=== PATIENT | male | born 1945 ===

== ENCOUNTER 2017-09-24 19:17 | Emergency (ER) | payer MEDICARE, OTHER ==
[2017-09-24 19:21] VITALS: BP 143/90
--- NOTE | 2017-09-24 19:23 | ER Report ---
History and Physical Time Seen By MD: 19:22 HPI/ROS CHIEF COMPLAINT: dizziness HISTORY OF PRESENT ILLNESS: This is a 72 year old male. He was at home and started to feel very dizzy. Very diaphoretic and nauseated. Had the urge and had a large bowel movement. He was starting to feel somewhat improved when he came to the hospital. Delay in getting in to see the patient, and he had labs drawn and an IV started with a liter of fluid given. He feels better now. He was thinking that he may have been a little dehydrated. He did take a bike ride about 8-10 miles prior to this and was sitting down to watch a movie at home. He has no further dizziness now. Had no chest pain. and no heart palpitations. No shortness of breath. Has been in good health otherwise. No history of heart problems. REVIEW OF SYSTEMS: Constitutional: Some chills during the episode, but no fevers. Eyes: No vision changes. ENT: No sore throat. No congestion. Cardiovascular: As above. Respiratory: No cough. No shortness of breath. Gastrointestinal: No abdominal pain. Genitourinary: No dysuria. No hematuria. No frequency Musculoskeletal: No back pain. No extremity pain. Skin: No rashes. No bruising. Neurological: No numbness. No weakness. Allergies: Coded Allergies: No Known Drug Allergies (Unverified , 08/10/14) Home Meds Discontinued Reported Medications Aspirin (ASPIR-LOW) 81 Mg Tablet.dr, 81 MG PO PRN Y for PAIN/HEADACHE, TAB 08/10/14 Discontinued Scripts Hydrocodone Bit/Acetaminophen (HYDROCODON-ACETAMINOPHEN 5-325) 1 Each Tablet, 1- 2 EACH PO Q4-6H, #30 TAB Prov:ANJEL GARCIA MD 08/14/14 Ketorolac Tromethamine (KETOROLAC TROMETHAMINE) 10 Mg Tab, 10 MG PO Q6H, #20 TAB Prov:ANJEL GARCIA MD 08/14/14 Reviewed Nurses Notes: Yes Hx Smoking: Yes (SMOKED CIGARS 2 TO 3 YEARS) Smoking Status: Former Smoker Exposure to Second Hand Smoke?: No Hx Alcohol Use: Yes Constitutional Vital Sign - Last 24 Hours 09/24/17 19:21 Temp 98.2 Pulse 52 Resp 20 B/P (MAP) 143/90 Pulse Ox 96 Physical Exam General Appearance: The patient is alert. No acute distress. Eyes: Pupils are equal, round. No pallor, injection or icterus. ENT: Mucous membranes are moist. Normal oral mucosa. Posterior oropharynx is normal. Neck: Supple and non tender. Respiratory: Lungs are clear to auscultation. Cardiovascular: Regular rate and rhythm. No murmurs, gallops or rubs. Normal capillary refill. No edema. Gastrointestinal: Abdomen is soft and non tender. Nondistended. Neurological: Alert and oriented x3. No focal neurologic deficits Skin: Warm and dry. DIFFERENTIAL DIAGNOSIS: After history and physical exam, differential diagnosis was considered for dizziness including but not limited to peripheral and central causes of vertigo, orthostatic causes including dehydration, and blood loss. Medical Decision Making Data Points Result Diagram: 09/24/17193909/24/171939 Laboratory Hematology Test 09/24/17 19:40 Red Blood Count 5.13 M/uL (4.00-5.60) Mean Corpuscular Volume 87.5 fL (80.0-96.0) Mean Corpuscular Hemoglobin 31.4 pg (26.0-33.0) Mean Corpuscular Hemoglobin Concent 35.8 g/dL (32.0-36.0) Red Cell Distribution Width 14.2 % (11.5-14.5) Mean Platelet Volume 8.1 fL (7.2-11.1) Neutrophils (%) (Auto) 58.0 % (39.4-72.5) Lymphocytes (%) (Auto) 36.2 % (17.6-49.6) Monocytes (%) (Auto) 4.3 % (4.1-12.4) Eosinophils (%) (Auto) 1.0 % (0.4-6.7) Basophils (%) (Auto) 0.5 % (0.3-1.4) Nucleated RBC Relative Count (auto) 0.1 /100WBC Neutrophils # (Auto) 5.5 K/uL (2.0-7.4) Lymphocytes # (Auto) 3.4 K/uL (1.3-3.6) Monocytes # (Auto) 0.4 K/uL (0.3-1.0) Eosinophils # (Auto) 0.1 K/uL (0.0-0.5) Basophils # (Auto) 0.0 K/uL (0.0-0.1) Nucleated RBC Absolute Count (auto) 0.01 K/uL Sodium Level 137 mmol/L (137-145) Potassium Level 3.3 mmol/L (3.5-5.0) Chloride Level 107 mmol/L (98-107) Carbon Dioxide Level 24 mmol/L (22-30) Blood Urea Nitrogen 22 mg/dl (9-21) Creatinine 0.70 mg/dl (0.66-1.25) Glomerular Filtration Rate Calc > 60.0 Random Glucose 106 mg/dl (75-110) Calcium Level 7.7 mg/dl (8.4-10.2) Total Bilirubin 0.4 mg/dl (0.2-1.3) Aspartate Amino Transf (AST/SGOT) 28 U/L (0-35) Alanine Aminotransferase (ALT/SGPT) 38 U/L (0-56) Alkaline Phosphatase 33 U/L (0-126) Troponin I < 0.012 ng/ml Total Protein 5.3 g/dl (6.3-8.2) Albumin 3.0 g/dl (3.5-5.0) Chemistry Test 09/24/17 19:40 White Blood Count 9.5 k/uL (4.5-11.0) Red Blood Count 5.13 M/uL (4.00-5.60) Hemoglobin 16.1 g/dL (14.0-18.0) Hematocrit 44.9 % (42.0-52.0) Mean Corpuscular Volume 87.5 fL (80.0-96.0) Mean Corpuscular Hemoglobin 31.4 pg (26.0-33.0) Mean Corpuscular Hemoglobin Concent 35.8 g/dL (32.0-36.0) Red Cell Distribution Width 14.2 % (11.5-14.5) Platelet Count 147 K/uL (150-450) Mean Platelet Volume 8.1 fL (7.2-11.1) Neutrophils (%) (Auto) 58.0 % (39.4-72.5) Lymphocytes (%) (Auto) 36.2 % (17.6-49.6) Monocytes (%) (Auto) 4.3 % (4.1-12.4) Eosinophils (%) (Auto) 1.0 % (0.4-6.7) Basophils (%) (Auto) 0.5 % (0.3-1.4) Nucleated RBC Relative Count (auto) 0.1 /100WBC Neutrophils # (Auto) 5.5 K/uL (2.0-7.4) Lymphocytes # (Auto) 3.4 K/uL (1.3-3.6) Monocytes # (Auto) 0.4 K/uL (0.3-1.0) Eosinophils # (Auto) 0.1 K/uL (0.0-0.5) Basophils # (Auto) 0.0 K/uL (0.0-0.1) Nucleated RBC Absolute Count (auto) 0.01 K/uL Glomerular Filtration Rate Calc > 60.0 Calcium Level 7.7 mg/dl (8.4-10.2) Total Bilirubin 0.4 mg/dl (0.2-1.3) Aspartate Amino Transf (AST/SGOT) 28 U/L (0-35) Alanine Aminotransferase (ALT/SGPT) 38 U/L (0-56) Alkaline Phosphatase 33 U/L (0-126) Troponin I < 0.012 ng/ml Total Protein 5.3 g/dl (6.3-8.2) Albumin 3.0 g/dl (3.5-5.0) EKG/Imaging EKG Interpretation 12 lead EKG: Rhythm: Sinus bradycardia, rate 51 [place]: normal QRS: normal ST segments: normal ED Course/Re-evaluation Clinical Indication for ER IV: Hydration, IV Access ED Course Labs unremarkable other than elevated BUN/creatinine to creatinine ratio. The fact that he has this and feels much better after the IV fluids suggests the dehydration likely was the cause. Troponin was negative and EKG showed no signs of ischemia. Decision to Disposition Date: Sep 24, 2017 Decision to Disposition Time: 21:50 Depart Departure Latest Vital Signs Vital Signs Date Time Temp Pulse Resp B/P (MAP) Pulse Ox O2 Delivery O2 Flow Rate FiO2 09/24/17 19:21 98.2 52 20 143/90 96 Impression: Primary Impression: Dehydration after exertion Additional Impression: Dizziness Condition: Improved Disposition: HOME OR SELF-CARE Patient Instructions: Dehydration (ED), Dizziness (ED) Additional Instructions: Rest and increase fluid intake over the next few days. Return for any worsening symptoms such as worsening dizziness, nausea/vomiting, or chest pain/shortness of breath. Problem Qualifiers KELLY SIMMONS MD Sep 24, 2017 19:23
[2017-09-24 19:47] LABS: PLATELET COUNT, AUTOMATED 147 K/uL (150-450)
--- NOTE | 2017-09-24 20:04 | EKG ---
FACILITY: [facility] PATIENT NAME: STEPHON ROWE : [id number] MR: [id number] V: [id number] EXAM DATE: ORDERING PHYSICIAN: KELLY SIMMONS TECHNOLOGIST: EMILY Andersen Reason : Blood Pressure : / mmHG Vent. Rate : 051 BPM Atrial Rate : 051 BPM P-R Int : 140 ms QRS Dur : 098 ms QT Int : 464 ms P-R-T Axes : 060 046 043 degrees QTc Int : 427 ms Sinus bradycardia Otherwise normal ECG Confirmed by YOLA MADRIGAL ([id number] on 09/24/2017 8:12:29 PM Referred By: Confirmed By:YOLA MADRIGAL
[2017-09-24] MEDS ORDERED: EMS NS 0.9%(*) 1000 ML BAG 1,000 ML IV ONE (20:40)
== END 2017-09-24 22:12 | disposition home or self-care (01) ==
LOC: ER 19:36
DX: E86.0 Dehydration (principal); Z87.891 Personal history of nicotine dependence
CPT/HCPCS: 36416; 82040; 82247; 82310; 82374; 82435; 82565; 82947; 82948; 84075; 84132; 84155; 84295; 84450; 84460; 84484; 84520; 85025; 93005; 96360; 99284

== ENCOUNTER → 2017-09-24 | Outpatient (CLI) | payer OTHER ==
[~2017-09-24] MED LIST: ASPI-839 PO; KET10 PO; LOR5/325 PO
== END ==
LOC: AMB 18:53
PROVIDERS: ATTEND Nurse Practitioner
DX: R53.1 Weakness (principal); R42 Dizziness and giddiness
CPT/HCPCS: A0425; A0427